=== PATIENT | male | born 1975 | race Caucasian/White ===

== ENCOUNTER 2021-02-16 17:58 | Emergency (ER) | payer BC ==
[~2021-02-16] VITALS: Ht 175.3 cm; Wt 85.3 kg
[2021-02-16 18:53] LABS: HEMOGLOBIN 15.5 gm/dl (14.0-17.5); RED BLOOD COUNT 4.76 M/UL (4.20-5.50); WHITE BLOOD COUNT 2.6 K/UL (4.5-11.0)
[2021-02-16 19:27] LABS: BUN/CREATININE RATIO 13 (0-10)
[2021-02-16] MEDS ORDERED: ZOFRAN4 MG PO (20:28)
[2021-02-16] MEDS ORDERED: DELSYM30 MG/5 ML PO (20:28)
== END 2021-02-16 22:40 | disposition home or self-care (01) ==
LOC: ER1 17:58
PROVIDERS: Physician Assistant
DX: U07.1 COVID-19 (principal); Z23 Encounter for immunization
CPT/HCPCS: 71045; 80053; 85025; 99283; M0243; U0002

== ENCOUNTER 2021-02-18 22:09 | Emergency (ER) | payer BC ==
[~2021-02-18] VITALS: Ht 175.3 cm; Wt 86.2 kg
[~2021-02-18 22:09] MED LIST: DELSYM30 MG/5 ML PO; ZOFRAN4 MG PO
[2021-02-18 23:00] LABS: HEMOGLOBIN 15.2 gm/dl (14.0-17.5); RED BLOOD COUNT 4.67 M/UL (4.20-5.50)
[2021-02-18 23:02] LABS: WHITE BLOOD COUNT 3.5 K/UL (4.5-11.0)
[2021-02-18 23:20] LABS: BUN/CREATININE RATIO 16 (0-10)
[2021-02-19] MEDS ORDERED: TYLENOL EXTRA500 MG PO (11:33)
[2021-02-19] MEDS ORDERED: DELSYM30 MG/5 ML PO (11:33)
[2021-02-19 16:42] LABS: BUN/CREATININE RATIO 14 (0-10)
== END 2021-02-19 16:11 | disposition home or self-care (01) ==
LOC: ER1 22:09 → CDU 02-19 00:45 → ER1 02-19 00:45 → CDU 02-19 00:45
PROVIDERS: Emergency Medicine; Internal Medicine Infectious Disease
DX: U07.1 COVID-19 (principal); R55 Syncope and collapse; I49.9 Cardiac arrhythmia, unspecified; E87.6 Hypokalemia
CPT/HCPCS: 71045; 80048; 80053; 81001; 82550; 82553; 83605; 83735; 83874; 83880; 84100; 84439; 84443; 84484; 85025; 87040; 87086; 93005; 99285; G0378; J2405; J3480